=== PATIENT | male | born 1955 | race Caucasian/White ===

== ENCOUNTER 2021-03-01 05:34 | Emergency (ER) | payer MEDICARE, SELFPAY ==
[2021-03-01 05:35] VITALS: BP 136/96; PULSE 82; RESP 20; TEMP 35.9; O2SAT 97; BMI 24.9
--- NOTE | 2021-03-01 05:42 | CT_ITS ---
STUDY: CT ABDOMEN AND PELVIS WITHOUT CONTRAST REASON FOR EXAM: Male, 65 years old. Abdominal pain. TECHNIQUE: Transaxial images were obtained from the dome of the diaphragm to the symphysis pubis without oral contrast, and without intravenous contrast. Sagittal and coronal images were reconstructed. Individualized dose optimization techniques were used for this CT. COMPARISON: None. FINDINGS: Partially visualized lower chest: Subsegmental dependent atelectasis lung bases. Liver: Diffuse steatosis. No focal lesions are evident. Gallbladder and biliary tree: Gallstones within the gallbladder which is surrounded by hemorrhagic ascites. No biliary ductal dilation. Pancreas: Pancreatic body and tail unremarkable. Pancreatic head and uncinate inseparable from an 8 cm diameter hematoma surrounding these structures and the adjacent duodenum. Spleen: Normal size, no splenic lesions. Adrenal glands: No concerning masses. Kidneys and ureters: No hydronephrosis or renal stones. No concerning masses. No ureteral dilation. Bowel: Normal appendix. Visualized distal esophagus and stomach unremarkable. Distal descending and transverse duodenum are surrounded by and difficult to separate from hematoma. Mild distention of more peripheral small bowel loops. Left colonic diverticulosis, no diverticulitis. No bowel obstruction. Urinary bladder: No stones or wall thickening. Several urinary bladder diverticula and trabeculation of its wall. Reproductive: Prostate mildly enlarged. Vascular: No abdominal aortic aneurysm. 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 This appears separate from the hemorrhage. The IVC is located along the posterior aspect of the hematoma. Retroperitoneal and peritoneal spaces: Moderate to large volume hemorrhagic ascites surrounds the liver and spleen and layers in the pelvis, also within the right greater left paracolic gutters. No free air or extraluminal air. Osseous: No acute osseous abnormality. Mild right scoliosis and moderate degenerative changes lumbar spine. Abdominal and pelvic wall: No concerning findings. CT/Abdomen/Pelvis without Cont IMPRESSION: 8 cm acute hematoma surrounding the pancreatic head and uncinate process and adjacent duodenum. Moderate to large volume hemorrhagic ascites in the peritoneal cavity as well. The exact cause of this acute hemorrhage is difficult to determine on this noncontrast study; possible sources include hemorrhagic pancreatitis, an underlying hemorrhagic mass or vascular lesion or trauma if there is history of trauma. Perforated duodenal ulcer can cause hemorrhage although the lack of extraluminal air argues against this. CTA abdomen pelvis with delayed phase imaging would better assess for the source of hemorrhage as well as the amount of active bleeding. Cholelithiasis, other chronic findings as above. N.B. : The above Results were Read Back by Eduardo Holman MD to MD Charly, and understanding confirmed on 03/01/2021 06:54:40 (ET). Electronically Signed: Eduardo Holman MD at 6:55 EDT Tel , Service support ,
--- NOTE | 2021-03-01 05:47 | EDS_ITS ---
HPI HPI - GI History of Present Illness Chief Complaint: Abd Pain Narrative Narrative: Patient presents with about 7-hour history of gradual onset of abdominal pain, about 2 hours ago he started vomiting. He has no fever chills cough or congestion. He has no back pain. He has no urinary symptoms. No diarrhea. No prior surgeries on his abdomen. No cough or congestion. The pain is worse with movement. [facility] Medical History (Updated 03/01/21 @ 07:[address] Milo Parks MD) Hypertension Home Medications amlodipine 10 mg PO DAILY 03/01/21 [History Last Taken Unknown] lisinopril 10 mg PO DAILY 03/01/21 [History Last Taken Unknown] Allergy/AdvReac Type Severity Reaction Status Date / Time No Known Allergies Allergy Verified 03/01/21 05:42 Social History Smoking Status: Never smoker ROS ROS ED ROS Narrative Past medical history: Reviewed Medications: Reviewed Social history: Noncontributory Review of systems: All systems negative except as indicated General: No fever Eyes: No visual changes ENT: No upper airway congestion, normal voice Neck: No neck pain Cardiovascular: No chest pain Respiratory: No shortness of breath or cough Gastrointestinal: Abdominal pain as in HPI Genitourinary: No dysuria Musculoskeletal: Denies myalgias no difficulty with ambulation Skin: No rash Neurological: No memory loss, confusion or any focal weakness Psych: No recent behavioral changes Hematologic: No easy bleeding or easy bruising EXAM Physical Exam Narrative Exam Narrative: Physical exam General: Patient appears in distress Head: Normocephalic, Atraumatic Eyes: Conjunctiva not pale ENT: Moist mucous membranes Neck: Supple, Nontender, No lymphadenopathy Cardiovascular: Regular rate, Regular rhythm Respiratory: No distress, CTA bilaterally Abdomen: Abdomen is slightly distended. I do appreciate bowel sounds. It is diffusely tender throughout with some guarding but no rebound tenderness. Back: Nontender, Normal Inspection. Negative for: CVA tenderness Extremities: Nontender, No edema Skin: Normal color, No rash Neurological: Alert, Normal Strength, Normal Sensation Psychological: Normal affect Const Vital Signs: 03/01/21 05:35 Temperature 96.6 F L Temperature Source Temporal Pulse Rate 82 Respiratory Rate 20 H Blood Pressure 136/96 H Blood Pressure Mean 109 Pulse Ox 97 Oxygen Delivery Method Room Air MDM MDM MDM Narrative Medical decision making narrative: Patient is found to have a large acute hematoma surrounding the pancreatic head and uncinate process and adjacent duodenum as well as hemorrhagic ascites. This facility does not have IR and/or vascular surgery therefore we will need to transfer. So far he has had a normal heart rate and blood pressure and his pain has improved. His first hemoglobin is 14 thus he does not need transfusion right now although he was typed and screened. Because the possibility of acute bleed I did request [facility]. Lab Data Labs: Laboratory Results - last 24 hr 03/01/21 03/01/21 03/01/21 05:55 05:55 05:55 WBC 10.2 RBC 5.44 Hgb 14.6 Hct 46.4 MCV 85.3 MCH 26.8 L MCHC 31.5 L RDW Std Deviation 43.3 RDW Coeff of Stephanie 13.8 Plt Count 146 L MPV 12.4 H Immature Gran % (Auto) 0.400 Neut % (Auto) 75.1 H Lymph % (Auto) 19.3 [place] % (Auto) 4.9 Eos % (Auto) 0.0 Baso % (Auto) 0.3 Absolute Neuts (auto) 7.7 Absolute Lymphs (auto) 1.96 Nucleated RBC % 0 Sodium 138 Potassium 3.3 L Chloride 102 Carbon Dioxide 29.0 Anion Gap 7 BUN 16 Creatinine 1.51 H Estim Creat Clear Calc 58.28 Est GFR (MDRD) Af Amer 59 L Est GFR (MDRD) Non-Af 49 L BUN/Creatinine Ratio 10.6 Glucose 176 H Lactic Acid 2.7 H* Calcium 8.4 L Total Bilirubin 0.70 AST 22 ALT 29 Alkaline Phosphatase 53 Total Protein 7.4 Albumin 3.7 Globulin 3.7 Albumin/Globulin Ratio 1.0 Lipase 226 Radiography Diagnostic Testing: Radiology Impression Abdomen/Pelvis CT 03/01/21 05:42 IMPRESSION: 8 cm acute hematoma surrounding the pancreatic head and uncinate process and adjacent duodenum. Moderate to large volume hemorrhagic ascites in the peritoneal cavity as well. The exact cause of this acute hemorrhage is difficult to determine on this noncontrast study; possible sources include hemorrhagic pancreatitis, an underlying hemorrhagic mass or vascular lesion or trauma if there is history of trauma. Perforated duodenal ulcer can cause hemorrhage although the lack of extraluminal air argues against this. CTA abdomen pelvis with delayed phase imaging would better assess for the source of hemorrhage as well as the amount of active bleeding. Cholelithiasis, other chronic findings as above. N.B. : The above Results were Read Back by Eduardo Holman MD to MD Charly, and understanding confirmed on 03/01/2021 06:54:40 (ET). Electronically Signed: Eduardo Holman MD at 6:55 EDT Tel , Service support , Discharge Plan Triage Chief Complaint: Abd Pain ED Provider: Milo Parks Dx/Rx/DC Orders Clinical Impression: Abdominal hematoma Prescriptions: No Action amlodipine 10 mg tablet 10 mg PO DAILY RF: 0 lisinopril 10 mg tablet 10 mg PO DAILY RF: 0 Primary Care Provider: Radhika Alcaraz MUSIC PRODUCER Referrals: Radhika Alcaraz MUSIC PRODUCER, [facility] [Primary Care Provider] - Disposition Disposition: Transfer to Another Type [facility]
[2021-03-01] MEDS: Ondansetron 4 MG/2 ML Vial IV (05:58)
[2021-03-01] MEDS: Morphine 4 MG/ML Syringe IV (05:58)
[2021-03-01 06:21] LABS: Absolute Lymphocyte Count 1.96 X10^3/uL (0.83-4.51); Absolute Neutrophil Count 7.7 X10^3/uL (2.0-7.7); Basophil# 0.03 X10^3/uL; Basophil% 0.3 % (0-1); Hematocrit 46.4 % (40-54); Hemoglobin 14.6 g/dL (13.0-16.5); Lymphocyte # 1.96 X10^3/ul (0.83-4.51); Lymphocyte % 19.3 % (19-41); Mean Corp Hgb Conc 31.5 g/dL (32-36); Mean Corpuscular Hgb 26.8 pg (27.0-32.0); Mean Corpuscular Volume 85.3 fL (80-94); Mean Platelet Vol. 12.4 fl (6.2-12.0); Monocyte% 4.9 % (0-10); NRBC Flagged by Analyzer 0 % (0-5); Neutrophil # 7.65 X10^3/uL (2.7-7.7); Neutrophil % 75.1 % (47-70); Platelet Count 146 K/mm3 (150-450); RBC Distribution Width CV 13.8 % (11.6-14.6); RBC Distribution Width SD 43.3 fl (35.1-43.9); Red Blood Count 5.44 M/mm3 (4.6-6.2); White Blood Count 10.2 K/mm3 (4.4-11.0)
[2021-03-01 06:37] LABS: Lactic Acid 2.7 mmol/L (0.4-1.9)
[2021-03-01 06:41] LABS: AST(SGOT) 22 U/L (15-37); Alanine Aminotransfer ALT/SGPT 29 U/L (16-61); Albumin, Serum 3.7 g/dL (3.2-5.0); Alkaline Phosphatase 53 U/L (45-117); Anion Gap 7 (5-15); BUN 16 mg/dL (7-18); BUN/Creat Ratio 10.6 RATIO (10-20); Calcium,Total 8.4 mg/dL (8.5-10.1); Chloride 102 mmol/L (98-107); Creatinine, Serum 1.51 mg/dL (0.70-1.30); EST Glomerular Filtration Rate 49 mL/min (>60); Est Glom Filt Rate - Afr Amer 59 mL/min (>60); Estimated Creatinine Clearance 58.28 ml/min; Globulin 3.7 g/dL (2.2-4.2); Glucose 176 mg/dL (74-106); Lipase 226 U/L (73-393); Potassium 3.3 mmol/L (3.5-5.1); Protein, Total 7.4 g/dL (6.4-8.2); Sodium Level 138 mmol/L (136-145)
--- NOTE | 2021-03-01 06:50 | CT_ITS ---
STUDY: CTA ABDOMEN REASON FOR EXAM: Male, 65 years old. Hemorrhage seen on noncontrast CT. RADIATION DOSAGE (If Supplied By Facility): CTDIvol = ( 15.60 ) mGy, DLP = ( 1312.67 ) mGycm TECHNIQUE: The examination was after the intravenous administration of IV 100mL Isovue-370. Post-processing of the angiographic images was performed, with MIP reconstructed images. Individualized dose optimization techniques were used for this CT. COMPARISON: Noncontrast CT abdomen pelvis earlier same date. FINDINGS: CTA: Aorta: No abdominal aortic aneurysm or dissection. No significant luminal narrowing. Celiac trunk: No significant narrowing or dissection. 1.6 cm aneurysmal dilation of the celiac artery just prior to its bifurcation. 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 Superior mesenteric artery: No significant narrowing or dissection. Renal arteries: No significant narrowing or dissection. Anatomic variant 2 renal arteries bilaterally. 1.3 cm aneurysm of the more cephalad of the 2 right renal arteries as it enters the hilum. No evidence of hemorrhage from this vessel. 1.2 cm aneurysm off the anterior aspect of the more cephalad of the 2 left renal arteries just prior to the left renal hilum. Inferior mesenteric artery: No significant narrowing or dissection. Iliac arteries: No significant narrowing or dissection of the included common iliac arteries. Nonvascular structures: Partially visible lower chest: Dependent atelectasis lung bases again demonstrated. Liver: Diffuse steatosis. No focal lesions are evident. Gallbladder and biliary tree: Gallstones. Blood surrounds the gallbladder. No evidence of acute cholecystitis. No biliary ductal dilation. Pancreas: Pancreatic neck and head surrounded by blood. This may mask small pancreatic lesions but there is no definite pancreatic inflammation or pancreatic mass to explain the hemorrhage. Spleen: Normal size, no splenic lesions. Adrenal glands: No concerning masses. Kidneys and ureters: No hydronephrosis or renal stones. No concerning masses. No ureteral dilation. Simple renal cysts. Bowel: Normal appendix. No obstruction or inflammation of the bowel. The descending and transverse duodenum are surrounded by blood. However the underlying duodenal mucosa is not thick-walled and there is no evidence of perforated ulcer. Retroperitoneal and peritoneal spaces: Moderate to large volume hemorrhagic ascites is similar to the previous study. The hematoma itself is also not definitively changed in size. No free air or extraluminal air. Osseous: No acute osseous abnormality. Abdominal and pelvic wall: No concerning findings. CT/CTA Abdomen W/WO Contrast IMPRESSION: The source of hemorrhage is a 1.3 cm diameter either aneurysm or pseudoaneurysm arising from either the gastroduodenal artery or a proximal branch of this vessel between the pancreatic head and descending duodenum. No extravasation of contrast is seen outside of the aneurysm/pseudoaneurysm on the arterial or venous phase images. 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 The size of the hematoma and amount of free intraperitoneal blood is not appreciably changed compared to the recent noncontrast study. Cholelithiasis, hepatic steatosis again demonstrated. N.B. : The above Results were Read Back by Eduardo Holman MD to Dr. Damir MD, and understanding confirmed on 03/01/2021 07:39:16 (ET). Electronically Signed: Eduardo Holman MD at 7:47 EDT Tel , Service support ,
[2021-03-01 07:39] VITALS: BP 103/87; PULSE 69; RESP 15; O2SAT 96
--- NOTE | 2021-03-01 07:57 | ED.RN ---
daughter, joo, updated at [phone] per father's request that he will be transferred to [facility] by helicopter. daughter agreeable with no questions or concerns.
[2021-03-01 07:59] VITALS: BP 114/85; PULSE 77; RESP 14; O2SAT 96
[2021-03-01 10:15] LABS: Reflex Lactate? Y
== END 2021-03-01 08:08 | disposition other institution (70) ==
PROVIDERS: Emergency Provider Emergency Medicine; PCP Nurse Practitioner
DX: S30.1XXA Contusion of abdominal wall, initial encounter (principal); X58.XXXA Exposure to other specified factors, initial encounter; I10 Essential (primary) hypertension; Z79.899 Other long term (current) drug therapy
CPT/HCPCS: 74175; 74176; 80053; 83605; 83690; 85025; 86850; 86900; 86901; 87426; 96361; 96374; 96375; 99285; J7030; Q9967; A4216; J2405

== ENCOUNTER 2022-06-20 15:30 | Outpatient (RCR) | payer MEDICARE, MEDICAID, SELFPAY ==
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
--- NOTE | 2022-05-24 09:03 | HP.PTREVAL_ITS ---
Dr. Joe Price MD, It has been my pleasure to treat CATA SERNA over the last 2 visits for POST TRAUMATIC OA R KNEE, SPONDYLOSIS OF CERVICAL SPINE AND CHRONIC LBP. Please see the progress note below for an update on the physical therapy plan of care! Subjective: PATIENT REPORTS HE HAS NOT BEEN ABLE TO START PHYSICAL THERAPY IN THE POOL YET BECAUSE HE HAS BEEN OUT OF STATE. HE WOULD LIKE TO START NOW. PATIENT DENIES ANY CHANGES SINCE INITIAL EVAL. Objective/Function: PATIENT WAS SEEN TODAY FOR RE-ASSESSMENT OF PROGRESS TOWARD THE SET PT GOALS AND THE NEED FOR FURTHER PHYSICAL THERAPY VS READINESS FOR DISCHARGE. UPON EXAM TODAY: THIS PATIENT AMBULATES INDEP'LY INTO PT X > 300 FEET WITHOUT ANY ASSISTIVE DEVICES OR LOB. INDEP TRANSFERS SIT TO STAND WITHOUT UE ASSIST. Sitting/Standing Posture: POOR. FH. RSH'S. NO RELEVENT LATERAL LUMBAR SHIFT AND NO NECK TORTICOLIS. Active Correction of posture: NE. S ensory deficit: CHARLEY UE AND LE LIGHT TOUCH SENSATION IS GROSSLY INTACT AND SYMMETRICAL. ROM deficit: R KNEE AROM IN SUPINE WITH A HEEL SLIDE = -15 DEG EXT TO 135 DEG FLEX. L KNEE FULL EXT TO 140 DEG FLEX. Motor deficit: CHARLEY UE AND LE STRENGTH GROSSLY 5/5 WITH MMT'ING EXCEPT RIGHT QUAD 4-/5. Dural Signs: POSITIVE CHARLEY LE'S. Lumbar mvmt loss: flex - MOD - INCREASES LBP AND R KNEE PAIN. ext - EXT - INCREASES LBP. R SG - TRAM - INCREASES LBP AND R KNEE PAIN. L SG - TRAM - INCREASES LBP. CERVICAL MVMT LOSS: FLEX - NIL, PRO - NIL, EXT - MOD TO TRAM, RET - TRAM, R SB - MOD, L SB - MOD, R ROT - MOD, L ROT - MOD. PATIENT C/O INCREASED NECK PAIN WITH CERVICAL ROM TESTING ALL PLANES. Core strength: POOR. Palpation: NO ACUTE NECK, BACK OR KNEE TENDERNESS. Plan Plan: AQUATIC THERAPY FOR PAIN RELEIF (NECK, BACK AND R KNEE), POSTURE CORRECTION/STRENGTHENING, INSTRUCTION IN APPROPRIATE BODY MECHANICS AND ACTIVITY MODIFICATIONS. DLS STARTING WITH A NEUTRAL SPINE PROGRESSING ROM TOLERATED. CHARLEY UE AND LE ROM, STRETCHING AND STRENGTHENING. HEP INSTRUCTION. Balance/Gait/Functional tests - Balance/Special Test Scores Oswestry Low Back Score: 7 Oswestry Neck Score: 9 Lower Extremity Functional Score: 46 Goals Goal 1:: DECREASE C/O NECK, BACK AND R KNEE PAIN Goal Time Frame: 4-6 Weeks Goal 2:: IMPROVE PERSONAL CARE, DRIVING, LIFTING, AND RECREATIONAL FUNCTION Goal Time Frame: 4-6 Weeks Goal 3:: PATIENT WILL BE INDEP WITH A POOL EX PROGRAM FOR CONTINUED IMRPOVEMENT ONCE FORMAL PHYSICAL THERAPY CONCLUDES. Goal Time Frame: 4-6 Weeks Anticipated Interventions Patient/Client Instruction: Educate patient on: Condition, Plan of Care, Risk Factors For the Purpose of:: To improve self management Therapeutic Exercise to Include: Strength training, Body mechanics, Postural training, Flexibilty training, Neuromotor development, In an aquatic setting, Dynamic Lumbar Stabilization, Scapular Strength/Stabilization For the Purpose of:: To decrease pain, To increase ROM, To improve muscle performance and motor function, To increase tolerance to activity/condition/position, To improve ability of physical actions for home/community/work/leisure Please do not hesitate to contact me at [phone] by phone or if you have questions or concerns regarding this new plan of care! Sincerely, Cristin Sandoval, PT, Cert MDT
--- NOTE | 2022-06-20 17:01 | HP.PTDCSUM_ITS ---
It has been my pleasure to treat CATA SERNA referred by Dr. Joe Price MD, with the diagnosis of POST TRAUMATIC OA R KNEE, SPONDYLOSIS OF CERVICAL SPINE AND CHRONIC LBP for a total of 7 visit(s). Discharge Date: Please see the following information for a summary of their discharge status. Subjective: PATIENT REPORTS HE FEELS REALLY GOOD WHEN HE IS IN THE WATER BUT HE ISN'T BETTER OVER-ALL BECAUSE THE PAIN COMES RIGHT BACK. WENT BOWLING TODAY AND SCORED A 181 ON HIS FIRST GAME. PLAYED 3 GAMES. PATIENT REPORTS HE IS A MEMBER AT [employer] AND HAS BEEN USING THEIR WATER BED AND PLANS TO CONTINUE TO DO THAT. NECK Pain Intensity (Out of 10): 8 LOW BACK Pain Intensity (Out of 10): 7 R KNEE Pain Intensity (Out of 10): 8 % Improvement: 0 Objective/Function: PATIENT WAS SEEN TODAY FOR RE-ASSESSMENT OF PROGRESS TOWARD THE SET PT GOALS AND THE NEED FOR FURTHER PHYSICAL THERAPY VS READINESS FOR DISCHARGE. OVER ALL HE ONLY REPORTS TEMPORARY RELIEF. HE HAS ATTENDED [address] SINCE LAST RE-CHECK AND HAS MISSED SEVERAL SCHEDULED CT'TS. HE APPEARS TO HAVE DIFFICULTY FOLLOWING INSTRUCTION IN THE POOL. HE APPEARS TO BE APPROPRIATE FOR DISCHARGE DUE TO REPORTS OF TEMPORARY RELIEF ONLY AND BEING NO BETTER OVER-ALL. HE DOES DEMO SMALL IMPOVEMENTS WITH TESTING BELOW. UPON EXAM TODAY: THIS PATIENT AMBULATES INDEP'LY INTO PT X > 300 FEET WITHOUT ANY ASSISTIVE DEVICES OR LOB. INDEP TRANSFERS SIT TO STAND WITHOUT UE ASSIST. Sitting/Standing Posture: POOR. FH. RSH'S. NO RELEVENT LATERAL LUMBAR SHIFT AND NO NECK TORTICOLIS. Active Correction of posture: NE. Sensory deficit: CHARLEY UE AND LE LIGHT TOUCH SENSATION IS GROSSLY INTACT AND SYMMETRICAL. ROM deficit: R KNEE AROM IN SUPINE WITH A HEEL SLIDE = -15 DEG EXT TO 141 DEG FLEX. L KNEE FULL EXT TO 144 DEG FLEX. Motor deficit: CHARLEY UE AND LE STRENGTH GROSSLY 5/5 WITH MMT'ING EXCEPT RIGHT QUAD 4-/5. Dural Signs: NEGATIVE CHARLEY LE'S. Lumbar mvmt loss: flex - MIN - INCREASES LBP AND R KNEE PAIN. ext - EXT - INCREASES LBP. R SG - TRAM - INCREASES LBP AND R KNEE PAIN. L SG - TRAM - INCREASES LBP. CERVICAL MVMT LOSS: FLEX - NIL, PRO - NIL, EXT - MOD TO TRAM, RET - TRAM, R SB - MOD, L SB - MOD, R ROT - MOD, L ROT - MOD. PATIENT C/O INCREASED NECK PAIN WITH CERVICAL ROM TESTING ALL PLANES. Core strength: POOR. Palpation: NO ACUTE NECK, BACK OR KNEE TENDERNESS. FUNCTIONAL SCREENS: LEFS AND BACK OSWESTRY SCORES HAVE IMPROVED AND NECK OSWESTRY SCORE HAS WORSENED. PHYSICIAN FOLLOW UP RECOMMENDED IF PAIN DOES NOT GET BETTER OR WORSENS AND PATIENT REPORTS HE PLANS TO FOLLOW UP WITH DR. PRICE NEXT MONTH. [ End ] Goal 1:: DECREASE C/O NECK, BACK AND R KNEE PAIN Goal Progress: Not Progressing Goal 2:: IMPROVE PERSONAL CARE, DRIVING, LIFTING, AND RECREATIONAL FUNCTION Goal Progress: Progressing Goal 3:: PATIENT WILL BE INDEP WITH A POOL EX PROGRAM FOR CONTINUED IMRPOVEMENT ONCE FORMAL PHYSICAL THERAPY CONCLUDES. Goal Progress: Not Progressing Plan: D/C. PATIENT AGREEABLE. If there are questions or concerns regarding this patient's physical therapy, please feel free to call me at [phone]. Thank you for the referral of this patient. Sincerely, Cristin Sandoval, PT, Cert MDT Balance/Gait/Functional tests - Balance/Special Test Scores Oswestry Low Back Score: 4 Oswestry Neck Score: 15 Lower Extremity Functional Score: 62
== END 2022-06-20 19:00 | disposition home or self-care (01) ==
LOC: PT 15:30
PROVIDERS: PCP Nurse Practitioner; Visit Provider Internal Medicine
DX: M17.31 Unilateral post-traumatic osteoarthritis, right knee (principal); M47.812 Spondylosis without myelopathy or radiculopathy, cervical region; G89.29 Other chronic pain
CPT/HCPCS: 97113; 97162; 97164

== ENCOUNTER 2022-09-05 09:00 | Outpatient (RCR) | payer MEDICARE, MEDICAID, SELFPAY ==
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
--- NOTE | 2022-09-05 09:32 | HP.PTDCSUM ---
It has been my pleasure to treat CATA SERNA referred by Dr. Joe Price MD, with the diagnosis of R knee pain, spondylosis of cervical spine, chronic lumbar spine pain for a total of 7 visit(s). Discharge Date: 09/05/22 Please see the following information for a summary of their discharge status. Subjective: Pt. is here today for his re assessment. Pt. reports overall doing well while in the pool, but gets out and his symptoms are about the same. 7/10 throughout his whole body. Low back pain Pain Intensity (Out of 10): 7 R knee pain Pain Intensity (Out of 10): 7 Cervical spine Pain Intensity (Out of 10): 8 % Improvement: 20 Objective/Function: Pt. reports having 7/10 pain throughout his whole body today. He reports having relief with getting in the pool, but not change in symptoms when he gets out. ROM: lumbar spine: flexion mod loss increase NW, extension mod loss increase NW, SB mod loss increase NW, rotation mod loss increase NW. CERVICAL: flexion mod loss increase NW, exten mod/max loss increase nW, SB mod loss bilat increase NW, rotation min loss R increase NW, mod loss to L increase NW. MMT: LLE: ext 75.5#, flexion 37.4#; hip: flexion 25.3#, abd 25.4#. RLE: knee ext 57.2#, flexion 24.5#; hip: flexion 27.9#, abd 21.3#. GAIT: pt. has pretty good gait pattern, slight lack of heel strike during initial contact. Pt. has good arm swing suggesting no gaurding of lumbar spine. Pt. has normal knee positioning as well. No major valgus or varus positioning. STAIRS: Pt. has fairly normal stair negotiation in reciprocal pattern. Pt. is I with HEP at this point in time. I would like him to continue with aquatic exercises I at this point in time. He has silver sneakers and has access to the pool. Goal 1:: LTG: Pt. to be I with HEP in aquatic setting. Goal Progress: Goal Met Goal 2:: STG: Pt. to have increased lumbar and cervical spine ROM by 25% in all directions without increase in symptoms. Goal Progress: Not Progressing Goal 3:: LTG: Pt. to have increased cervical and lumbar ROM by 50% without increase in symptoms. Goal Progress: Not Progressing Goal 4:: LTG: Pt. to be to complete all bowling games without increase in R knee, lumbar and cervical spine pain. Goal Progress: Goal Met Goal 5:: LTG: Pt. to increased core and B hip strength by 1/2 grade of all effected musculature. Goal Progress: Goal Met Plan: I am DCing patient back to physician. Discharge Comments: Pt. was seen in aquatic therapy for his neck, back and knee. He is I with his exercises at this point in time. He has not had a major reduction in symptoms, but reports having similar issues for years. I want to him to work on his exercises on his own and to follow back up with physician if not improving. If there are questions or concerns regarding this patient's physical therapy, please feel free to call me at [phone]. Thank you for the referral of this patient. Sincerely, Soy Elizondo, DPT Balance/Gait/Functional tests - Balance/Special Test Scores Oswestry Low Back Score: 10
== END 2022-09-05 19:00 | disposition home or self-care (01) ==
LOC: PT 09:00
PROVIDERS: PCP Nurse Practitioner; Referring Provider Internal Medicine; Visit Provider Internal Medicine
DX: M54.50 Low back pain, unspecified (principal); M47.812 Spondylosis without myelopathy or radiculopathy, cervical region; M17.31 Unilateral post-traumatic osteoarthritis, right knee; G89.29 Other chronic pain
CPT/HCPCS: 97113; 97162; 97164

== ENCOUNTER 2023-05-29 11:49 | Emergency (ER) | payer MEDICARE, MEDICAID, SELFPAY ==
[2023-05-29 11:50] VITALS: BP 165/113; PULSE 111; RESP 17; TEMP 36.7; O2SAT 96; BMI 26.2
--- NOTE | 2023-05-29 12:59 | CT_ITS ---
INDICATION: Shortness of breath EXAMINATION: CTA CHEST, ABDOMEN AND PELVIS WITH CONTRAST - TECHNIQUE: A CTA of the chest, abdomen, and pelvis is obtained with sagittal and coronal reconstructed MIP views. Three-dimensional surface rendered sequence of the thoracic and abdominal aorta was obtained. A radiation dose optimization technique was used for this scan. 100 mL of Isovue-370. Oral contrast: None. RADIATION DOSAGE (If Supplied By Facility): CTDIvol = ( 17.25 ) mGy, DLP = ( 1365.63 ) mGycm COMPARISON: Prior study dated: 03/01/2021. FINDINGS: CT CHEST: THORACIC AORTA: Mild atherosclerotic calcifications of the aortic arch with tortuosity of the ascending thoracic aorta without evidence of dissection. 4.3 cm ascending thoracic aortic aneurysm. ABDOMINAL AORTA: Atherosclerotic calcifications without evidence of aneurysm or dissection. Patent bilateral iliac arteries. 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 Unremarkable SMA and GAGE. 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 LUNGS: [Atelectatic changes in the lung bases. Left pleural reaction/effusion. No focal consolidation otherwise is seen. MEDIASTINUM: The thyroid gland is normal. No mediastinal or hilar adenopathy. HEART: Heart is normal size. No pericardial effusion. No CAD. CT ABDOMEN AND PELVIS: LIVER: Hepatic steatosis. Small right lobe liver cyst is seen. GALLBLADDER: Gallstones. SPLEEN: Normal. PANCREAS: No masses or inflammation. ADRENAL GLANDS: Normal. KIDNEYS AND URETERS: The kidneys both enhance appropriately. There are normal size and shape. No hydronephrosis or nephrolithiasis. Small simple bilateral cysts which no further follow-up exam is needed. STOMACH: Normal. SMALL BOWEL: No abnormal distention of the small bowel. MESENTERY: No mesenteric inflammation. No ascites. COLON: No evidence of acute diverticulitis. No focal acute inflammatory process. No evidence of acute sinusitis. IVC: Unremarkable RETROPERITONEUM: No retroperitoneal lymphadenopathy. PELVIC STRUCTURES: Bilateral bladder measuring about 3.6 cm in the left side and 3 cm in the right side. Another smaller bladder diverticulum measuring about 1 cm near the bladder dome. Enlarged prostate. Correlation with PSA level is recommended. SOFT TISSUES ABDOMEN: The anterior abdominal wall is normal. SOFT TISSUE CHEST: The extrathoracic soft tissues are normal. BONES: Degenerative changes of the spine. CT/CTA Chst, Abd, Pel W and/or WO IMPRESSION: 1. Atelectatic changes in the right lower lung. Probable small left pleural effusion. 2. No focal acute inflammatory process. 3. Ascending thoracic aortic aneurysm measuring about 4.2 cm in AP diameter. 4. No evidence of aortic dissection or central pulmonary embolism. 5. 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 6. Bladder diverticula. Electronically Signed: Kashif Abdi MD at 14:33 EST ,
--- NOTE | 2023-05-29 13:02 | CT_ITS ---
INDICATION: head injury EXAMINATION: CT BRAIN - CT Head or Brain W/O Contrast Injection TECHNIQUE: Multiple axial images were obtained of the head without intravenous contrast. A radiation dose optimization technique was used for this scan. IV Contrast dosage and agent: None. RADIATION DOSAGE (If Supplied By Facility): CTDIvol = ( 44.99 ) mGy, DLP = ( 863.60 ) mGycm COMPARISON: No relevant prior comparison study available FINDINGS: BRAIN PARENCHYMA: No intra- or extra-axial hemorrhage. No evidence of acute infarct. 1.4 cm dural based calcified left frontal mass likely due to calcified meningioma. There is preservation of the traylor/white matter interface. Posterior fossa structures are unremarkable. CSF SPACES: Appropriate for age. No hydrocephalus. Basal cisterns are patent. CALVARIUM, SKULL BASE, PARANASAL SINUSES AND MASTOID AIR CELLS: Clear. No discrete lytic or blastic abnormalities. ORBITS: Both globes, extraocular muscles, optic nerves and retrobulbar fat appear unremarkable. ASPECTS Score for Acute Strokes: 10 CT/Brain/Head without Contrast IMPRESSION: 1. No acute intracranial process. 2. Dural based left frontal calcified mass likely due to meningioma. Electronically Signed: Kashif Abdi MD at 14:05 EST ,
--- NOTE | 2023-05-29 13:03 | EKG12_ITS ---
Test Reason : FALL Blood Pressure : / mmHG Vent. Rate : 081 BPM Atrial Rate : 081 BPM P-R Int : 172 ms QRS Dur : 092 ms QT Int : 386 ms P-R-T Axes : 044 -26 010 degrees QTc Int : 448 ms Normal sinus rhythm Normal ECG No previous ECGs available Confirmed by KISHA SHARMA, TONYA ([id number]), index editor WILLA MARIN ([id number]) on 06/01/2023 9:27:27 AM Referred By: Confirmed By:TONYA BEARD MD
--- NOTE | 2023-05-29 13:08 | EDS_ITS ---
HPI <THOMAS Jenkins - Last Filed: 05/29/23 15:14> History of Present Illness Chief Complaint: Fall Narrative Narrative: Patient is a 68-year-old male with history of hypertension who presents to the emergency department with severe back pain, chest pain, abdominal pain. Patient states that on Monday, 24 May, the patient had a fall from 4 feet landing on his left upper back. Patient states he did injure himself, he did have a head injury which she states he was knocked out for a couple minutes. Patient states that he did not seek medical care at that time, he then drove from [place] to [place], and last evening he coughed, and had significant sharp pain to his left shoulder blade, went to his chest and abdomen. Patient states that the pain is now unbearable, he cannot move and is crying out in pain. He denies any fever or chills. Denies any other injuries. [facility] <THOMAS Jenkins - Last Filed: 05/29/23 15:14> [facility] Medical History (Updated 05/29/23 @ 15:08 by THOMAS Jenkins) Hypertension Home Medications amlodipine 10 mg tablet 10 mg PO DAILY 03/01/21 [History Last Taken Unknown] lisinopril 10 mg tablet 10 mg PO DAILY 03/01/21 [History Last Taken Unknown] orphenadrine citrate 100 mg tablet,extended release 100 mg PO BID #20 tabs 05/29/23 [Rx Last Taken Unknown] Allergy/AdvReac Type Severity Reaction Status Date / Time No Known Allergies Allergy Verified 05/29/23 13:29 Social History Smoking Status: Never smoker ROS <THOMAS Jenkins - Last Filed: 05/29/23 15:14> ROS ED ROS Narrative Constitutional: Negative for fever, chills, weight loss, weakness Eyes: Negative for vision loss, vision change, double vision ENT: Negative for any sore throat, ear pain, congestion Cardiovascular: Negative for any chest pain, tightness, palpitations Respiratory: Negative for any cough, sputum production, hemoptysis. Positive for dyspnea, dyspnea on exertion, orthopnea Gastrointestinal: Negative for any nausea, vomiting, diarrhea, constipation, blood in stool, blood in vomit. Positive for abdominal pain : Negative for any urinary frequency, dysuria, retention, blood in urine Muscle skeletal: Negative for any myalgias, arthralgias, neck pain. Positive for mid back pain Neurological: Negative for any headache, syncope, numbness or tingling, dizziness Skin: Negative for any rashes, lumps, itching, abrasions, lacerations Psychiatric: Negative for any depression, anxiety, stress, suicidal ideation, homicidal ideation Hematologic: Negative for any easy bruising, excessive bruising, easy bleeding Allergies: Negative for any eczema, hives, rash EXAM <THOMAS Jenkins - Last Filed: 05/29/23 15:14> Physical Exam Narrative Exam Narrative: Vital signs reviewed. Patient on my examination was screaming in pain. Any sort of movement or cough made him scream out in pain. Patient appears to be in moderate to severe discomfort. HEET: Head normocephalic atraumatic, TMs clear bilaterally. Posterior pharynx is clear, moist mucous membranes. Nares clear bilaterally. Pupils are equal round reactive to light, negative for any hematoma, septal hematoma. Neck: Supple with no lymphadenopathy or tenderness. No signs of meningismus. Cardiac: tachycardic rate no murmurs gallops or rubs, equal peripheral pulses bilaterally. Respiratory: Lungs clear to auscultation bilaterally. Patient is breathing shallow however I do hear breath sounds on both sides, no tracheal deviation. Patient does have left-sided rib, left posterior chest wall tenderness. Abdomen: Soft,nondistended. No abdominal bruit or pulsatile masses. No hepatosplenomegaly. Patient has tenderness to the lower abdomen Extremities: No peripheral edema, no signs of gross trauma or deformity. Active full range of motion of all extremities. Neuro: Cranial nerves II through XII intact, no focal neurological deficits. Skin: Clean dry and intact with no rash, purpura, petechiae, vesicles or pustules. Backs/flank: No CVA tenderness no deformity. Patient has bruising to the left shoulder blade, significant tenderness to the left paraspinal thoracic spine, patient does have pain on palpation to the midline thoracic spine. No crepitus felt. Psych: Normal mood and affect. No SI, HI or acute psychosis. Const Vital Signs: 05/29/23 11:50 05/29/23 13:29 05/29/23 14:46 Temperature 98.1 F Temperature Source Temporal Pulse Rate 111 H 82 Respiratory Rate 17 16 Respiratory Effort Normal Non-Labored Respiratory Depth Normal Respiratory Pattern Normal Blood Pressure 165/113 H 138/77 H Blood Pressure Mean 130 97 Pulse Ox 96 95 Oxygen Delivery Method Room Air Room Air <Dr. Patrice Arrington DO - Last Filed: 06/02/23 15:27> Physical Exam Const Vital Signs: 05/29/23 11:50 05/29/23 13:29 05/29/23 14:46 Temperature 98.1 F Temperature Source Temporal Pulse Rate 111 H 82 Respiratory Rate 17 16 Respiratory Effort Normal Non-Labored Respiratory Depth Normal Respiratory Pattern Normal Blood Pressure 165/113 H 138/77 H Blood Pressure Mean 130 97 Pulse Ox 96 95 Oxygen Delivery Method Room Air Room Air MDM <THOMAS Jenkins - Last Filed: 05/29/23 15:14> [facility] Lab Data Labs: Laboratory Results - last 24 hr 05/29/23 05/29/23 13:15 14:41 WBC 9.6 RBC 5.53 Hgb 14.7 Hct 46.8 MCV 84.6 MCH 26.6 L MCHC 31.4 L RDW Std Deviation 43.1 RDW Coeff of Stephanie 14.0 Plt Count 151 MPV 11.5 Immature Gran % (Auto) 0.300 Neut % (Auto) 74.1 H Lymph % (Auto) 16.6 L [place] % (Auto) 8.0 Eos % (Auto) 0.6 Baso % (Auto) 0.4 Absolute Neuts (auto) 7.1 Absolute Lymphs (auto) 1.60 Nucleated RBC % 0 PT 13.6 INR 1.0 Sodium 142 Potassium 3.5 Chloride 108 H Carbon Dioxide 29.0 Anion Gap 5 BUN 18 Creatinine 1.42 H Estim Creat Clear Calc 57.85 Est GFR (MDRD) Af Amer 63 Est GFR (MDRD) Non-Af 52 L BUN/Creatinine Ratio 12.7 Glucose 115 H Calcium 8.6 Troponin I High Sens 15 Urine Color Yellow Urine Clarity Clear Urine pH 7.0 Ur Specific [place] 1.010 Urine Protein Negative Urine Glucose (UA) Normal Urine Ketones Negative Urine Occult Blood 10 H Urine Nitrite Negative Urine Bilirubin Negative Urine Urobilinogen Normal Ur Leukocyte Esterase Negative Urine RBC 0 SEEN Urine WBC 0 SEEN Ur Squamous Epith Cells 0 SEEN Urine Bacteria 0 SEEN Urine Mucus 0 SEEN Radiography Diagnostic Testing: Clinical Impression(s) from Imaging Studies Chest/Abdomen/Pelvis CTA 05/29/23 12:59 IMPRESSION: 1. Atelectatic changes in the right lower lung. Probable small left pleural effusion. 2. No focal acute inflammatory process. 3. Ascending thoracic aortic aneurysm measuring about 4.2 cm in AP diameter. 4. No evidence of aortic dissection or central pulmonary embolism. 5. 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 6. Bladder diverticula. Electronically Signed: Kashif Abdi MD at 14:33 EST , Brain CT 05/29/23 13:02 IMPRESSION: 1. No acute intracranial process. 2. Dural based left frontal calcified mass likely due to meningioma. Electronically Signed: Kashif Abdi MD at 14:05 EST , EKG Normal sinus rhythm: Attestation: I personally reviewed and interpreted this EKG as follows: Comments: 81 bpm, normal sinus rhythm, OR 172 ms, QRS duration 80 ms, no acute ST elevation, no acute infarct Treatment and Re-Evaluation :: Patient appears to be in mild to moderate distress secondary to pain to his left back. Patient presents to the emergency department with pain to the chest, thoracic spine, abdominal pain post a fall on the which was 5 days ago. Differential diagnosis includes multiple rib fractures, pneumoperitoneum, aortic rupture, ACS, muscle skeletal pain. Patient will have a CTA of the chest abdomen pelvis. All radiologic examinations were read, reviewed by the emergency department attending. From these reads, a plan of care will be put in place. Patient will receive basic laboratory values including troponin, EKG. Given IV fluids, Zofran, morphine. Patient's brain CT shows no acute intercranial process, there is a left frontal calcified mass likely due to meningioma. Patient CT of the chest abdomen pelvis shows atelectatic changes in the right lower lung probable small the pleural effusion. No focal acute inflammatory process. An aortic aneurysm measuring 4.2 cm no evidence of aortic dissection or central pulmonary embolism. Status postembolization of the celiac axis and left renal artery aneurysms. No acute process. On reevaluation, the patient was feeling much better. Patient's urinalysis was negative for any infection, no gross blood. At this time, patient be given Norflex for home, he will continue take ibuprofen or Tylenol. He will go home and stretch, ice and heat. All questions were answered, instructed return for any worsening symptoms. Stable for discharge <Dr. Patrice Arrington, DO - Last Filed: 06/02/23 15:27> [facility] MDM Narrative Medical decision making narrative: Patient appears to be in mild to moderate distress secondary to pain to his left back. Patient presents to the emergency department with pain to the chest, thoracic spine, abdominal pain post a fall on the which was 5 days ago. Differential diagnosis includes multiple rib fractures, pneumoperitoneum, aortic rupture, ACS, muscle skeletal pain. Patient will have a CTA of the chest abd omen pelvis. All radiologic examinations were read, reviewed by the emergency department attending. From these reads, a plan of care will be put in place. Patient will receive basic laboratory values including troponin, EKG. Given IV fluids, Zofran, morphine. Patient's brain CT shows no acute intercranial process, there is a left frontal calcified mass likely due to meningioma. Patient CT of the chest abdomen pelvis shows atelectatic changes in the right lower lung probable small the pleural effusion. No focal acute inflammatory process. An aortic aneurysm measuring 4.2 cm no evidence of aortic dissection or central pulmonary embolism. Status postembolization of the celiac axis and left renal artery aneurysms. No acute process. On reevaluation, the patient was feeling much better. Patient's urinalysis was negative for any infection, no gross blood. At this time, patient be given Norflex for home, he will continue take ibuprofen or Tylenol. He will go home and stretch, ice and heat. All questions were answered, instructed return for any worsening symptoms. Stable for discharge This patient was seen with a PA/[employer] ROOM OPERATOR Individually assessed they patient including history and physical. I have reviewed everything on the chart that is available and agree with the documentation provided by the PA/[employer] ROOM OPERATOR including discussion about the assessment, treatment plan, discussion, and return precautions. Patient presented with multiple points of pain. Apparently he fell injuring himself by falling through the deck. The circumstances surrounding this are unclear. The patient states he stalled an area of the deck and inadvertently walked across it. He states he fell through the deck onto his feet initially and somehow was able to fall forward and hit the back of his left shoulder and also complains that he knocked himself out. He was otherwise well until driving back when he had a hard cough in the vehicle and decided to make it home before he got himself checked out. His exam is only remarkable for bruising to the left upper scapular region. This is posterior. Lungs clear to auscultation. Ribs are nontender. Vital signs are stable he is afebrile. He has pain worsening with movement. Lab work-up and imaging were ultimately normal and showed nothing acute. Patient counseled on findings. He will be discharged home with muscle relaxers and he should use anti-inflammatories or Tylenol for pain. Lab Data Labs: Laboratory Results - last 24 hr 05/29/23 05/29/23 13:15 14:41 WBC 9.6 RBC 5.53 Hgb 14.7 Hct 46.8 MCV 84.6 MCH 26.6 L MCHC 31.4 L RDW Std Deviation 43.1 RDW Coeff of Stephanie 14.0 Plt Count 151 MPV 11.5 Immature Gran % (Auto) 0.300 Neut % (Auto) 74.1 H Lymph % (Auto) 16.6 L [place] % (Auto) 8.0 Eos % (Auto) 0.6 Baso % (Auto) 0.4 Absolute Neuts (auto) 7.1 Absolute Lymphs (auto) 1.60 Nucleated RBC % 0 PT 13.6 INR 1.0 Sodium 142 Potassium 3.5 Chloride 108 H Carbon Dioxide 29.0 Anion Gap 5 BUN 18 Creatinine 1.42 H Estim Creat Clear Calc 57.85 Est GFR (MDRD) Af Amer 63 Est GFR (MDRD) Non-Af 52 L BUN/Creatinine Ratio 12.7 Glucose 115 H Calcium 8.6 Troponin I High Sens 15 Urine Color Yellow Urine Clarity Clear Urine pH 7.0 Ur Specific [place] 1.010 Urine Protein Negative Urine Glucose (UA) Normal Urine Ketones Negative Urine Occult Blood 10 H Urine Nitrite Negative Urine Bilirubin Negative Urine Urobilinogen Normal Ur Leukocyte Esterase Negative Urine RBC 0 SEEN Urine WBC 0 SEEN Ur Squamous Epith Cells 0 SEEN Urine Bacteria 0 SEEN Urine Mucus 0 SEEN Radiography Diagnostic Testing: Clinical Impression(s) from Imaging Studies Chest/Abdomen/Pelvis CTA 05/29/23 12:59 IMPRESSION: 1. Atelectatic changes in the right lower lung. Probable small left pleural effusion. 2. No focal acute inflammatory process. 3. Ascending thoracic aortic aneurysm measuring about 4.2 cm in AP diameter. 4. No evidence of aortic dissection or central pulmonary embolism. 5. 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 6. Bladder diverticula. Electronically Signed: Kashif Abdi MD at 14:33 EST , Brain CT 05/29/23 13:02 IMPRESSION: 1. No acute intracranial process. 2. Dural based left frontal calcified mass likely due to meningioma. Electronically Signed: Kashif Abdi MD at 14:05 EST , Discharge Plan Triage Chief Complaint: Fall ED Midlevel Provider: Milo Elizondo ED Provider: Patrice Arrington Dx/Rx/DC Orders Clinical Impression: Contusion of thoracic spine, Chest wall contusion, Fall Instructions: ED Chest Wall Contusion, ED Bruise, Rib Prescriptions: New orphenadrine citrate 100 mg tablet extended release 100 mg PO BID Qty: 20 0RF No Action amlodipine 10 mg tablet 10 mg PO DAILY lisinopril 10 mg tablet 10 mg PO DAILY Patient Comments: TAKE 1 TABLET BY MOUTH ONCE DAILY Primary Care Provider: Radhika Alcaraz [employer]OM OPERATOR Referrals: Radhika Alcaraz [employer] ROOM OPERATOR, [employer] ROOM OPERATOR-C [Primary Care Provider] - Activity Restrictions/Additional Instructions: Please follow-up outpatient. Perform gentle stretching. Disposition Disposition: Home, Self Care Discharge Date/Time: 05/29/23 15:34
[2023-05-29] MEDS: 0.9% Normal Saline (1000mL) 1,000 ML 1000 ML IV (13:24)
[2023-05-29] MEDS: Ondansetron 4 MG/2 ML Vial IV (13:25)
[2023-05-29] MEDS: Morphine 4 MG/ML Syringe IV (13:26)
[2023-05-29 13:27] LABS: Absolute Neutrophil Count 7.1 X10^3/uL (2.0-7.7); Basophil# 0.04 X10^3/uL; Basophil% 0.4 % (0-1); Eosinophil# 0.06 X10^3/uL; Eosinophils% 0.6 % (0-5); Hematocrit 46.8 % (40-54); Hemoglobin 14.7 g/dL (13.0-16.5); Lymphocyte % 16.6 % (19-41); Mean Corp Hgb Conc 31.4 g/dL (32-36); Mean Corpuscular Hgb 26.6 pg (27.0-32.0); Mean Corpuscular Volume 84.6 fL (80-94); Mean Platelet Vol. 11.5 fl (6.2-12.0); Monocyte# 0.77 X10^3/uL; NRBC Flagged by Analyzer 0 % (0-5); Neutrophil # 7.11 X10^3/uL (2.7-7.7); Neutrophil % 74.1 % (47-70); Platelet Count 151 K/mm3 (150-450); RBC Distribution Width SD 43.1 fl (35.1-43.9); Red Blood Count 5.53 M/mm3 (4.6-6.2); White Blood Count 9.6 K/mm3 (4.4-11.0)
[2023-05-29 13:44] LABS: Prothrombin Time (Protime)PT. 13.6 SECONDS (11.7-14.9)
--- NOTE | 2023-05-29 13:44 | ED.RN ---
update given to daughter on phone
[2023-05-29 13:45] LABS: Anion Gap 5 (5-15); BUN 18 mg/dL (7-18); BUN/Creat Ratio 12.7 RATIO (10-20); Calcium,Total 8.6 mg/dL (8.5-10.1); Chloride 108 mmol/L (98-107); Creatinine, Serum 1.42 mg/dL (0.70-1.30); EST Glomerular Filtration Rate 52 mL/min (>60); Est Glom Filt Rate - Afr Amer 63 mL/min (>60); Estimated Creatinine Clearance 57.85 ml/min; Glucose 115 mg/dL (74-106); Potassium 3.5 mmol/L (3.5-5.1); Sodium Level 142 mmol/L (136-145); Troponin-I HS 15 pg/mL (3.0-78.0)
[2023-05-29 14:46] VITALS: BP 138/77; PULSE 82; RESP 16; O2SAT 95
[2023-05-29 14:47] LABS: Bacteria 0 SEEN /hpf (None Seen); Mucous, Urine 0 SEEN /hpf (<or=2+); Red Blood Cells-Urine 0 SEEN /hpf (0-5); Squamous Epithelial Cells - UA 0 SEEN /hpf (0-5); White Blood Cells 0 SEEN /hpf (0-5)
[2023-05-29 14:48] LABS: Color, Urine Yellow (Yellow); Glucose, Dipstick Normal (Normal); Ketone-Dipstick Negative (Negative); Leukocyte Esterase-Dipstick Negative /ul (Negative); Nitrite-Dipstick Negative (Negative); Occult Blood-Urine 10 /ul (Negative); Protein-Dipstick Negative (Negative); Urine Bilirubin Dipstick Negative (Negative); Urine Clarity Clear (Clear); Urine Urobilinogen Normal (Normal)
--- NOTE | 2023-05-29 15:33 | ED.RN ---
PT HAS FAMILY MEMBER AT THE BEDSIDE- THIS RN ASKED IF FAMILY MEMBER WOULD BE TAKING PATIENT HOME, FAMILY MEMBER SAID YES, PATIENT SAID THEY ARE WILLING TO WAIT IN THE WAITING ROOM FOR 2 MORE HOURS UNTIL HIS 4 HOUR POST MORPHINE DOSE. PT AGREEABLE- SECURITY NOTIFIED.
== END 2023-05-29 15:34 | disposition home or self-care (01) ==
PROVIDERS: Nurse Practitioner; Emergency Provider Student in an Organized Health Care Education/Training Program; PCP Nurse Practitioner; Visit Provider Student in an Organized Health Care Education/Training Program
DX: S20.222A Contusion of left back wall of thorax, initial encounter (principal); I71.21 Aneurysm of the ascending aorta, without rupture; D32.0 Benign neoplasm of cerebral meninges; S20.212A Contusion of left front wall of thorax, initial encounter; S40.012A Contusion of left shoulder, initial encounter; R10.9 Unspecified abdominal pain; I10 Essential (primary) hypertension; Z79.899 Other long term (current) drug therapy; W17.89XA Other fall from one level to another, initial encounter
CPT/HCPCS: 70450; 71275; 74174; 80048; 81001; 84484; 85025; 85610; 93005; 96361; 96374; 96375; 99283; J7030; Q9967; A4216; J2405

== ENCOUNTER 2023-10-03 15:21 | Emergency (ER) | payer MEDICARE, MEDICAID, SELFPAY ==
[2023-10-03 15:21] VITALS: BP 120/101; PULSE 105; RESP 20; O2SAT 99
[2023-10-03 15:22] VITALS: BP 117/104; PULSE 110; RESP 16; TEMP 36.3; O2SAT 97
[2023-10-03 15:24] VITALS: BMI 25.7
--- NOTE | 2023-10-03 16:34 | EDS_ITS ---
HPI History of Present Illness Chief Complaint: Back Narrative Narrative: 68-year-old male presenting with right lower back pain. Patient states this is acute on chronic issue. He states that he went bowling last week and did not have any issues. He states that a couple of days ago he sat down in a low chair and noticed he had a small amount of pain in the lower back on the right. Denies loss of bladder or bowel control. Denies saddle anesthesia. Eating and drinking normally. He is making normal urine and stool. He denies any direct trauma to the back. He states he has not tried anything at home such as Tylenol or ibuprofen. He states that he has Celebrex at home which his primary care provides for him for back pain but he has not taken this. He has not tried ice or heat. Patient states that the nurse practitioner for his primary care Dr. Price called to check on him and he told her that he had back pain and the patient states that she stated he needed to come to the emergency room for an x- ray of his back. The patient states that he did not tell her that he had very mild pain. He states that he did not tell her if he had not tried anything for pain. The patient has not had any trouble ambulating, bending, stooping, kneeling. [facility] Medical History Hypertension Home Medications amlodipine 10 mg tablet 10 mg PO DAILY 03/01/21 [History Last Taken Unknown] lisinopril 10 mg tablet 10 mg PO DAILY 03/01/21 [History Last Taken Unknown] orphenadrine citrate 100 mg tablet,extended release 100 mg PO BID #20 tabs 05/29/23 [Rx Last Taken Unknown] lidocaine 5 % topical patch 1 patch topical DAILY PRN pain #15 ea 10/03/23 [Rx Last Taken Unknown] Allergy/AdvReac Type Severity Reaction Status Date / Time No Known Allergies Allergy Verified 10/03/23 15:22 Social History Smoking Status: Never smoker ROS ROS ED Constitutional Constitutional ED: Denies chills, fever(s) or sweats Eyes Eyes: Denies blurry vision or change in vision ENT ENT ED: Denies ear pain or sore throat Cardiovascular Cardiovascular: Denies chest pain, palpitations or racing heartbeat Respiratory/Chest Respiratory/Chest: Denies cough, dyspnea or sputum Gastrointestinal Gastrointestinal: Denies abdominal pain, constipation, diarrhea, nausea or vomiting Genitourinary Genitourinary ED: Denies dysuria, hematuria or urinary frequency Musculoskeletal Musculoskeletal: Reports back pain; Denies arthralgias, myalgias or neck pain Integumentary Denies abscess, Abrasions or rash Neurologic Neurologic: Denies headache(s), paresthesias or weakness Psychiatric Psychiatric: Denies anxiety, depression, suicidal ideation or suicidal thoughts Endocrine Endocrinology: Denies polydipsia or polyuria EXAM Physical Exam Const Vital Signs: 10/03/23 15:22 10/03/23 15:21 Temperature 97.3 F L Temperature Source Temporal Pulse Rate 110 H 105 H Respiratory Rate 16 20 H Blood Pressure 117/104 H 120/101 H Blood Pressure Mean 108 107 Pulse Ox 97 99 Oxygen Delivery Method Room Air Room Air Positive well nourished General Appearance ED: NAD HEENT Reports moist mucous membranes Eyes PERRL and EOMs intact bilaterally Resp normal respiratory effort Cardio regular rate and regular rhythm Back/Spine Back/Spine Narrative: No reproducible back pain in the midline lumbar or thoracic spine. No paraspinal muscular tenderness adjacent to the lumbar thoracic spine. No rashes, ecchymosis, bruising. Patient able to briskly sit up from supine into the seated position without any difficulty and twist his trunk and body to the bedside. Patient will stand and walk without any difficulty. 5/5 motor strength throughout. Extremity normal to inspection Neuro oriented x3 and no sensory deficits noted Sensorium / Orientation: alert Motor Exam: strength 5/5 throughout Psych mental status grossly normal MDM MDM MDM Narrative Medical decision making narrative: Patient presenting with lower back pain on the right which is likely musc uloskeletal. I could not reproduce this on examination the patient has not taken anything to try to treat his pain. He states that he wants an x-ray of his lumbar spine because the nurse practitioner that called and told him he needed an x-ray of his lumbar spine. I counseled him that he does not and that it is not indicated but he still wants to have an x-ray of his lumbar spine. I will obtain a an x-ray of the lumbar spine based on his request although I still think it is indicated. I give him a Lidoderm patch and some ibuprofen. X-ray of the lumbar spine 3 views on my interpretation no acute fracture or subluxation. Radiology interprets this and agrees. Patient counseled he is stable for discharge home. I recommended that he try his medications at home and he is given Lidoderm patches. He will continue to follow-up with physical therapy as he already does. Impression: 1. Lumbar strain Lab Data Attestation: I reviewed the patient's lab results. Radiography Diagnostic Testing: Clinical Impression(s) from Imaging Studies Lumbar Spine X-Ray 10/03/23 16:34 IMPRESSION: No change. No acute abnormality. Stable mild degenerative changes. Electronically Signed: Brenton Lynn MD at 16:59 EDT , Discharge Plan Triage Chief Complaint: Back ED Provider: Patrcie Arrington Dx/Rx/DC Orders Instructions: ED Back Spasm, No Trauma Prescriptions: New lidocaine 5 % adhesive patch,medicated 1 patch topical DAILY PRN (Reason: pain) Qty: 15 0RF Rx Instructions: leave on most painful area for up to 12 hrs No Action amlodipine 10 mg tablet 10 mg PO DAILY lisinopril 10 mg tablet 10 mg PO DAILY Patient Comments: TAKE 1 TABLET BY MOUTH ONCE DAILY orphenadrine citrate 100 mg tablet extended release 100 mg PO BID Qty: 20 0RF Primary Care Provider: Joe Price Referrals: Radhika Liz STORES ASSISTANT, STORES ASSISTANT-C [Non-Staff] - Disposition Disposition: Home, Self Care
--- NOTE | 2023-10-03 16:34 | RAD_ITS ---
STUDY: X-RAY - LUMBAR SPINE REASON FOR EXAM: Male, 68 years old. back pain TECHNIQUE: 3 view(s) of the lumbar spine were obtained. COMPARISON: 07/22/2014 FINDINGS: Normal lumbar lordosis. There is no substantial scoliosis. There is a normal alignment of the vertebrae. There is mild, stable, multilevel endplate spondylosis of the lumbar vertebrae. There is mild, stable, multi-level degenerative disc disease with multi-level disc space narrowing. There is no demonstrated fracture. The soft tissue structures are unremarkable. RAD/Lumbar Spine 2 or 3 Views IMPRESSION: No change. No acute abnormality. Stable mild degenerative changes. Electronically Signed: Brenton Lynn MD at 16:59 EDT ,
[2023-10-03] MEDS: Lidocaine 5% Patch 1 PATCH TOPICAL (16:46)
[2023-10-03] MEDS: Ibuprofen 600 MG Tablet PO (16:47)
== END 2023-10-03 17:13 | disposition home or self-care (01) ==
PROVIDERS: Emergency Provider Student in an Organized Health Care Education/Training Program; PCP Internal Medicine; Visit Provider Student in an Organized Health Care Education/Training Program
DX: S39.012A Strain of muscle, fascia and tendon of lower back, initial encounter (principal); X58.XXXA Exposure to other specified factors, initial encounter; I10 Essential (primary) hypertension
CPT/HCPCS: 72100; 99282

== ENCOUNTER 2024-08-16 07:48 | Emergency (ER) | payer MEDICARE, MEDICAID, SELFPAY ==
[2024-08-16 07:49] VITALS: BP 166/99; PULSE 104; RESP 14; TEMP 36.2; O2SAT 98; BMI 25.2
--- NOTE | 2024-08-16 08:13 | EX.ED.DYSGE1 ---
HPI History of Present Illness Chief Complaint: Ear Problem Informant: patient Narrative Narrative: Patient 69-year-old male with history of hypertension presenting with concern for a bug in his right ear. Patient states about 3 days ago he felt that there was a bug walking his ears. He attempted to use a vacuum to suck it out twice. After using the vacuum he started to have pain in his ear. He has had drainage coming from his ear. He feels that his hearing is decreased on that side. He is not sure if the bug in his ear. Came in for further evaluation. Denies any fever or chills. Nu[place] any other complaints or concerns at this time. [facility] Medical History Hypertension Home Medications ?Medication ?Instructions ?Recorded ?Last Taken ?Type amlodipine 10 mg tablet 10 mg PO DAILY 03/01/21 Unknown History lisinopril 10 mg tablet 10 mg PO DAILY 03/01/21 Unknown History orphenadrine citrate 100 mg 100 mg PO BID #20 tabs 05/29/23 Unknown Rx tablet,extended release lidocaine 5 % topical patch 1 patch topical DAILY PRN pain #15 10/03/23 Unknown Rx ea ciprofloxacin 0.3 %-dexamethasone 4 drp RIGHT EAR BID 7 days #7.5 mL 08/16/24 Unknown Rx 0.1 % ear drops,suspension Allergy/AdvReac Type Severity Reaction Status Date / Time No Known Allergies Allergy Verified 08/16/24 07:48 Family History no significant family his Social History Smoking Status: Never smoker ROS ROS ED Constitutional Constitutional ED: Denies chills or fever(s) Eyes Eyes: Denies change in vision ENT ENT ED: Reports ear pain right (With drainage, concerned that there is a bug in his ear); Denies rhinorrhea or sore throat Respiratory/Chest Respiratory/Chest: Denies dyspnea Gastrointestinal Gastrointestinal: Denies nausea or vomiting Integumentary Denies rash Neurologic Neurologic: Denies headache(s) EXAM Physical Exam Const Vital Signs: 08/16/24 07:49 Temperature 97.1 F L Temperature Source Temporal Pulse Rate 104 H Respiratory Rate 14 Blood Pressure 166/99 H Blood Pressure Mean 121 Pulse Ox 98 Oxygen Delivery Method Room Air Positive well nourished and well developed General Appearance ED: well developed and NAD HEENT Reports moist mucous membranes HEENT Narrative: Normal left ear canal, external ear and tympanic membrane. Patient initially had a piece of clear tape over his right ear (so the bug bugs do not get in). He has serous drainage coming from the ear pulling in the outer ear. No mastoid tenderness. No redness of the external ear. There is some slight swelling of the ear canal and tenderness. Some white exudate is noted in the ear canal. There is visualization of part of the tympanic membrane which appears normal however it is not complete visualization secondary to swelling and discomfort of the ear canal. No foreign body is appreciated at this time. Negative for trauma Eyes PERRL Neck no lymphadenopathy and supple Resp normal respiratory effort Cardio regular rate and regular rhythm Neuro oriented x3 Sensorium / Orientation: alert Motor Exam: Negative for general weakness Psych mental status grossly normal Skin no rashes or lesions noted and no wounds MDM MDM MDM Narrative Medical decision making narrative: Patient is evaluated for concern of bug in his right ear. Differential includes foreign body in the ear, perforated pain membrane, otitis media, otitis externa. On exam patient clinically has otitis externa. Do not appreciate otitis media or perforation. I do not see any insects in the ear. Will place a wick insert the patient on Ciprodex. We do not have Ciprodex on formulary so we will give first dose of Cipro in the emergency room. Will refer to ENT. While in the ER patient is noted to have bedbugs on his person. Is informed of this as well. Discharge Plan Triage Chief Complaint: Ear Problem ED Provider: Jammie Raymond Dx/Rx/DC Orders Clinical Impression: Acute otitis externa of right ear, Infestation by bed bug Instructions: Bedbugs, ED Bedbug Bites Prescriptions: New ciprofloxacin-dexamethasone 0.3-0.1 % drops,suspension 4 drp RIGHT EAR BID 7 Days Qty: 7.5 0RF No Action amlodipine 10 mg tablet 10 mg PO DAILY lisinopril 10 mg tablet 10 mg PO DAILY Patient Comments: TAKE 1 TABLET BY MOUTH ONCE DAILY orphenadrine citrate 100 mg tablet extended release 100 mg PO BID Qty: 20 0RF lidocaine 5 % adhesive patch,medicated 1 patch topical DAILY PRN (Reason: pain) Qty: 15 0RF Rx Instructions: leave on most painful area for up to 12 hrs Primary Care Provider: Joe Price Referrals: Junior Joshi MD [Med Staff - Active Staff] - Joe Price MD [Primary Care Provider] - Activity Restrictions/Additional Instructions: At this time you do not seem to have a bug in your ear. You do have an infection of the ear canal called otitis externa. You had an ear wick placed in your ear to help keep the ear canal open and antibiotics were administered. These antibiotics are ciprofloxacin. You have been called in an additional prescription that is a mixture of ciprofloxacin and a steroid which will help more with the pain. If you cannot get that prescription or it is too expensive you may use the drops that were given to you in the ER today (the ciprofloxacin without the steroid) 4 drops twice a day for 7 days instead. You do not need to use both prescriptions. Please follow-up with the ENT doctor to ensure this is improving. May also follow-up with your primary care doctor Print Language: Croatian Disposition Disposition: Home, Self Care
[2024-08-16] MEDS: Ciprofloxacin 0.3% 2.5ml Bottle 2 DRP RIGHT EAR (08:20)
== END 2024-08-16 08:29 | disposition home or self-care (01) ==
PROVIDERS: Emergency Provider Emergency Medicine; PCP Internal Medicine; Visit Provider Emergency Medicine
DX: H60.501 Unspecified acute noninfective otitis externa, right ear (principal); I10 Essential (primary) hypertension; B88.2 Other arthropod infestations; Z79.899 Other long term (current) drug therapy
CPT/HCPCS: 99282